=== PATIENT | female | born 1945 | race Caucasian/White ===

== ENCOUNTER → 2017-03-01 | Outpatient (CLI) | payer OTHER ==
[~2017-03-01] VITALS: Ht 154.9 cm; Wt 68.0 kg
[~2017-03-01] MED LIST: ASPIR 8181 MG PO; CENTRUM SILVER1 EAC4 PO; FISH OIL 1,001000 M2 PO; HYDROCHLOROTH12.5 M1 PO; LIPITOR 20 MG T20 M1 PO; METOPROLOL SUCC25 M1 PO; NORVASC5 MG PO; PRINIVIL20 MG PO
--- NOTE | ~2017-03-01 | P ---
[facility] [place] [address] PROCEDURE REPORT Name: JOYCEVIVIENNE Room #: REG [facility]#: [id number] Admission: 03/01/17 Attend Phys: Robinson Alberto MD Discharge: Date of : 47 Report #: [id number] THIS REPORT FOR: //name// CC: Montserrat Alberto BRIEF HISTORY: The patient is a 71-year-old woman for average risk screening colonoscopy. PREOPERATIVE DIAGNOSIS: Average risk screening colonoscopy. POSTOPERATIVE DIAGNOSES: 1. Multiple colon polyps. 2. Mild sigmoid diverticulosis coli. MEDICATIONS: Deep sedation with propofol per anesthesia. SPECIMENS: 1. Polyp at 20 cm. 2. Polyp at 60 cm. 3. Polyp at 30 cm. 4. Rectal polyp. ESTIMATED BLOOD LOSS: 3 mL. PROCEDURE: Colonoscopy to cecum and terminal ileum with snare polypectomy and biopsy. FINDINGS: Prior to propofol sedation, procedure of colonoscopy discussed with the patient as well as potential risks, benefits, and complications. She indicates she understands and desires to proceed. With the patient in left lateral decubitus position, digital examination was completed, which revealed no abnormalities. Subsequently, the C3DNA video colonoscope was introduced into the rectum and advanced under direct vision to the cecum. Done with minimal difficulty. The cecum was identified by the ileocecal valve and the appendiceal orifice. I was able to visualize the distal segment of terminal ileum, which was inspected and noted to be unremarkable. At that point, the scope was slowly withdrawn and careful circumferential views obtained including retroflexing the scope in the ascending colon. Upon slow withdrawal of the scope, the prep was found to be excellent. The mucosa was within normal limits, normal vascular pattern, and normal light reflex. As the scope was withdrawn, a diminutive polyp was seen at 60 cm and removed by biopsy. Scope was further withdrawn and a flat 5 mm polyp was seen and removed by cold snare polypectomy and recovered. At 20 cm, a sessile 6 mm polyp was seen and removed by cold snare polypectomy and recovered. A few scattered sigmoid [facility] [address] [place] [address] PROCEDURE REPORT Name: VIVIENNE COOK Room #: REG [facility].#: [id number] Admission: 03/01/17 Attend Phys: Robinson Alberto MD Discharge: Date of : 47 Report #: [id number] diverticula were seen. There was no endoscopic evidence of diverticulitis. Scope was withdrawn in the rectum and in the rectum, a diminutive rectal polyp was seen and removed by biopsy forceps. Scope withdrawn in the distal rectum. Upon retroflexion, no abnormalities were seen. Scope was withdrawn. The patient tolerated the procedure well. CONDITION OF THE PATIENT UPON DISCHARGE: Following procedure, the patient drowsy, aroused, conversant and will be discharged home when fully ambulatory. INSTRUCTIONS TO THE PATIENT AND FAMILY AT THE TIME OF DISCHARGE: We will follow up on the path report. If 3 or more of these polyps are adenomatous, she should return in 3 years; if one or two adenomas, then she should return in 5 years; if none are adenomatous, she should return in 10 years. She will return to care of Dr. Montserrat White and she will return to see me as needed. Last colonoscopy was more than 10 years ago. Withdrawal time from the cecum was 11 minutes and 19 seconds. <ELECTRONICALLY SIGNED> By: Roibnson Alberto MD 03/01/17 1200 1056 1127 Robinson Alberto MD /nt
--- NOTE | ~2017-03-01 | S ---
[facility] [place] [address] SURGICAL PATH RPT PROCEDURE Name: TIA COOK Room #: REG [facility].#: [id number] Admission: 03/01/17 Date of : 47 Discharge: Report #: [id number] Path Case #: [id number] PATHOLOGY REPORT COLLECTION DATE: 03/01/2017 RECEIVED DATE: 03/01/2017 SUBMITTING PHYS: Dr. Robinson Alberto OTHER PHYS: Dr. Montserrat White SPECIMEN(S) RECEIVED: A.Polyp at 20cm B.Polyp at 60cm C.Polyp at 30cm D.Polyp at rectum * * * * * * * * * * * * FINAL DIAGNOSIS: A. Colon, 20 cm, biopsy: - Tubular adenoma. - Negative for high grade dysplasia. B. Colon, 60 cm, biopsy: - Colonic mucosa with submucosal adipose tissue, see comment. C. Colon, 30 cm, biopsy: - Tubular adenoma. - Negative for high grade dysplasia. D. Rectum, biopsy: - Hyperplastic polyp. COMMENT: The findings present in part B, Colon 60 cm, could either represent a lipoma, or fatty infiltration of the colon. Clinical correlation is recommended. PATHOLOGIST: Odell Severino M.D. REPORT ELECTRONICALLY SIGNED BY: Odell Severino M.D. DATE/TIME: 03/02/2017 12:43 * * * * * * * * * * * * GROSS PATHOLOGY: A. Received in formalin labeled "Tia Cook, polyp at 20 cm," is a segment of ferrer soft tissue measuring 0.8 cm in maximum dimension. The specimen is submitted entirely in cassette A1. B. Received in formalin labeled "Tia Cook, polyp at 60 cm," is a segment of ferrer soft tissue measuring 0.3 cm in maximum dimension. The specimen is submitted entirely in cassette B1. C. Received in formalin labeled "Tia Cook, polyp at 30 cm," is a [facility] [employer] [facility] [address] [place] [address] SURGICAL PATH RPT PROCEDURE Name: TIA COOK Room #: [facility]#: [id number] Admission: 03/01/17 Date of : 47 Discharge: Report #: [id number] Path Case #: [id number] segment of ferrer soft tissue measuring 0.5 cm in maximum dimension. The specimen is submitted entirely in cassette C1. D. Received in formalin labeled "Tia Cook, polyp in rectum," is a segment of ferrer soft tissue measuring 0.4 cm in maximum dimension. The specimen is submitted entirely in cassette D1. (TSD; 03/01/2017) CLINICAL HISTORY: Pre-OP DX: Colonoscopy screening Post-OP DX: Colon polyps, diverticulosis INITIAL CPT CODE(S): A; 23584 B; 08209 C; 27108 D; 35604 Professional services performed by [facility] at [address] , [place] [address] Technical services performed by [facility] at [address] [place] [address]., [address] [address]. [facility] [address] [place] [address] PHONE: [phone] DIRECTOR: Jordan Oviedo M.D. * * * END OF REPORT * * *
== END | disposition home or self-care (01) ==
LOC: GI 07:11
DX: Z12.11 Encounter for screening for malignant neoplasm of colon (principal); D12.5 Benign neoplasm of sigmoid colon; D17.79 Benign lipomatous neoplasm of other sites; K62.1 Rectal polyp; I10 Essential (primary) hypertension; E78.5 Hyperlipidemia, unspecified; Z95.5 Presence of coronary angioplasty implant and graft; Z87.891 Personal history of nicotine dependence; Z98.890 Other specified postprocedural states; Z88.2 Allergy status to sulfonamides; Z79.82 Long term (current) use of aspirin; Z79.899 Other long term (current) drug therapy
CPT/HCPCS: 62110; 62900

== ENCOUNTER 2018-10-31 08:36 | Emergency (ER) | payer OTHER ==
[~2018-10-31] VITALS: Ht 154.9 cm; Wt 77.1 kg
[2018-10-31 09:39] LABS: ABSOLUTE NEUTROPHILS 4.2 thou/uL (1.4-8.2); BASOPHILS 0.8 % (0.0-2.0); EOSINOPHILS 2.3 % (0.0-3.0); HEMATOCRIT 44.8 % (37.0-47.0); HEMOGLOBIN 15.6 gm/dL (12.0-15.0); LYMPHOCYTES 28.1 % (24.0-44.0); MCH 30.1 pg (26.0-34.0); MCHC 34.8 g/dL (28.0-37.0); MCV 86.6 fL (80.0-100.0); MONOCYTES 6.2 % (1.0-8.0); PLATELET COUNT 242 thou/uL (150-400); POLYS 62.6 % (36.0-66.0); RBC 5.18 mil/uL (4.20-5.00); RDW 13.4 % (10.5-14.5); WBC 6.7 thou/uL (4.0-11.0)
[2018-10-31 09:43] LABS: ANION GAP 8 mmol/L (7-16); BUN 17 mg/dL (7-18); CALCIUM 9.8 mg/dL (8.5-10.1); CHLORIDE 104 mmol/L (98-107); CO2 30 mmol/L (21-32); CREATININE 0.8 mg/dL (0.6-1.0); GLUCOSE 106 mg/dL (74-106); POTASSIUM 3.7 mmol/L (3.5-5.1); SODIUM 142 mmol/L (136-145)
[2018-10-31 09:51] LABS: TROPONIN-I <0.06 ng/mL (<0.06)
[2018-10-31 10:14] LABS: URINE BILIRUBIN NEGATIVE (Negative); URINE BLOOD NEGATIVE (Negative); URINE CLARITY CLEAR; URINE COLOR YELLOW; URINE GLUCOSE-RANDOM* NEGATIVE (Negative); URINE KETONES NEGATIVE (Negative); URINE LEUKOCYTES-REFLEX TRACE (Negative); URINE NITRITE-REFLEX NEGATIVE (Negative); URINE PROTEIN (DIPSTICK) NEGATIVE (Negative); URINE UROBILINOGEN 0.2 E.U./dl (0.2-1.0)
[2018-10-31 10:56] VITALS: BP 131/54
--- NOTE | 2018-11-01 15:51 | EKG ---
[place] [address] [facility] [place] [address] ELECTROCARDIOGRAM REPORT Name: VIVIENNE COOK Gerald Room #: DEP [facility]#: [id number] ������������������ Admission: 10/31/18 ������������������ Attend Phys: Discharge: 10/31/18 ������������������ Date of : 47 Report #: [id number] ����������������������������������������������������������������� [id number] THIS REPORT FOR: //name// 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: : 1945 Requested By: Gareth Art Order Number: [id number] MD: Marcelo Russell Measurements Intervals [place] Rate: 62 P: 25 AR: 201 QRS: -43 QRSD: 110 T: 4 QT: 433 QTc: 440 Interpretive Statements Sinus rhythm Left anterior fascicular block Borderline T abnormalities, inferior leads Poor R wave progression Compared to ECG 04/28/2009 07:18:01 Left anterior fascicular block now present Ventricular premature complex(es) no longer present Electronically Signed On 11-01-2018 15:51:33 CDT by Marcelo Russell [email or web address] ��������������������������������������������� <ELECTRONICALLY SIGNED> ���������������������������������������� By: Marcelo Russell MD, [facility] ��������������������������������������������� 11/01/18 1551 0950 0950 Marcelo Russell MD, [facility] /EPI
== END 2018-10-31 10:56 | disposition home or self-care (01) ==
LOC: ER 08:36
PROVIDERS: Emergency Medicine
DX: R42 Dizziness and giddiness (principal); I10 Essential (primary) hypertension; E78.5 Hyperlipidemia, unspecified; Z87.891 Personal history of nicotine dependence; Z88.2 Allergy status to sulfonamides; Z95.5 Presence of coronary angioplasty implant and graft

== ENCOUNTER → 2019-07-03 | Outpatient (CLI) | payer OTHER | LOC: SJCVC 10:45 | DX: R94.31 Abnormal electrocardiogram [ECG] [EKG] (principal); I25.10 Atherosclerotic heart disease of native coronary artery without angina pectoris; I51.81 Takotsubo syndrome; I77.89 Other specified disorders of arteries and arterioles; I12.9 Hypertensive chronic kidney disease with stage 1 through stage 4 chronic kidney disease, or unspecified chronic kidney disease; N18.9 Chronic kidney disease, unspecified; E78.00 Pure hypercholesterolemia, unspecified; Z79.899 Other long term (current) drug therapy; Z87.891 Personal history of nicotine dependence ==

== ENCOUNTER 2020-03-21 08:57 | Emergency (ER) | payer OTHER ==
[~2020-03-21] VITALS: Ht 154.9 cm; Wt 68.0 kg
[2020-03-21 10:56] LABS: ABSOLUTE NEUTROPHILS 5.4 thou/uL (1.4-8.2); BASOPHILS 0.7 % (0.0-2.0); EOSINOPHILS 1.5 % (0.0-3.0); HEMATOCRIT 46.5 % (37.0-47.0); HEMOGLOBIN 16.1 gm/dL (12.0-15.0); LYMPHOCYTES 22.8 % (24.0-44.0); MCH 30.2 pg (26.0-34.0); MCHC 34.6 g/dL (28.0-37.0); MCV 87.4 fL (80.0-100.0); MONOCYTES 5.8 % (1.0-8.0); PLATELET COUNT 232 thou/uL (150-400); POLYS 69.2 % (36.0-66.0); RBC 5.32 mil/uL (4.20-5.00); WBC 7.8 thou/uL (4.0-11.0)
[2020-03-21 11:02] LABS: ANION GAP 9 mmol/L (7-16); BUN 23 mg/dL (7-18); CALCIUM 9.9 mg/dL (8.5-10.1); CHLORIDE 102 mmol/L (98-107); CO2 31 mmol/L (21-32); CREATININE 0.9 mg/dL (0.6-1.0); GLUCOSE 109 mg/dL (74-106); POTASSIUM 3.2 mmol/L (3.5-5.1); SODIUM 142 mmol/L (136-145)
[2020-03-21 11:11] LABS: TROPONIN-I <0.06 ng/mL (<0.06)
--- NOTE | 2020-03-21 11:20 | EKG ---
[facility] [place] [address] ELECTROCARDIOGRAM REPORT Name: JOYCEVIVIENNE A Room #: REG [facility]#: [id number] Admission: 03/21/20 Attend Phys: Discharge: Date of : 47 Report #: [id number] THIS REPORT FOR: cc: Montserrat White MD, Cora A. 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: Darrell LEONE : 1945 Requested By: Odell Nash Order Number: [id number] : Dnany Delgado Measurements Intervals [place] Rate: 69 P: 32 [place]: 193 QRS: -46 QRSD: 107 T: 35 QT: 405 QTc: 434 Interpretive Statements Sinus rhythm Inferior infarct, old Anterior infarct, old Compared to ECG 10/31/2018 09:50:39 Myocardial infarct finding now present Left anterior fascicular block no longer present T-wave abnormality no longer present Poor R-wave progression no longer present Electronically Signed On 03-21-2020 11:20:03 CDT by Danny Delgado [email or web address] <ELECTRONICALLY SIGNED> By: Danny Delgado MD 03/21/20 1120 1 1 Danny Delgado MD /EPI
[2020-03-21 11:52] VITALS: BP 181/85
== END 2020-03-21 11:52 | disposition home or self-care (01) ==
LOC: ER 08:57
PROVIDERS: Emergency Medicine
DX: R07.89 Other chest pain (principal); I10 Essential (primary) hypertension; E78.5 Hyperlipidemia, unspecified; Z79.82 Long term (current) use of aspirin; Z79.899 Other long term (current) drug therapy; Z88.2 Allergy status to sulfonamides; Z87.891 Personal history of nicotine dependence

== ENCOUNTER → 2020-07-02 | Outpatient (CLI) | payer MEDICARE | LOC: SJCVC 14:17 | PROVIDERS: ATTEND Internal Medicine Cardiovascular Disease | DX: R94.31 Abnormal electrocardiogram [ECG] [EKG] (principal); I77.811 Abdominal aortic ectasia; I10 Essential (primary) hypertension; E78.00 Pure hypercholesterolemia, unspecified; I25.10 Atherosclerotic heart disease of native coronary artery without angina pectoris; I51.81 Takotsubo syndrome; R06.00 Dyspnea, unspecified; I25.5 Ischemic cardiomyopathy; M19.90 Unspecified osteoarthritis, unspecified site; Z86.16 Personal history of COVID-19; Z79.82 Long term (current) use of aspirin; Z79.899 Other long term (current) drug therapy; Z87.891 Personal history of nicotine dependence; Z72.89 Other problems related to lifestyle; Z88.2 Allergy status to sulfonamides ==

== ENCOUNTER → 2020-09-09 | Outpatient (CLI) | payer OTHER | LOC: SJCVC 08:33 | PROVIDERS: ATTEND Internal Medicine Cardiovascular Disease | DX: E78.00 Pure hypercholesterolemia, unspecified (principal); I25.10 Atherosclerotic heart disease of native coronary artery without angina pectoris; I10 Essential (primary) hypertension; Z79.82 Long term (current) use of aspirin; Z79.899 Other long term (current) drug therapy; Z82.49 Family history of ischemic heart disease and other diseases of the circulatory system ==

== ENCOUNTER 2020-10-08 09:47 | Emergency (ER) | payer OTHER ==
[~2020-10-08] VITALS: Ht 152.4 cm; Wt 68.0 kg
[2020-10-08] MEDS ORDERED: CRESTOR20 MG PO (10:19)
[2020-10-08 11:26] LABS: ABSOLUTE NEUTROPHILS 4.7 thou/uL (1.4-8.2); BASOPHILS 0.7 % (0.0-2.0); EOSINOPHILS 1.6 % (0.0-3.0); HEMATOCRIT 41.9 % (37.0-47.0); HEMOGLOBIN 14.5 gm/dL (12.0-15.0); LYMPHOCYTES 25.8 % (24.0-44.0); MCH 29.8 pg (26.0-34.0); MCHC 34.7 g/dL (28.0-37.0); MONOCYTES 7.7 % (1.0-8.0); PLATELET COUNT 240 thou/uL (150-400); POLYS 64.2 % (36.0-66.0); RBC 4.87 mil/uL (4.20-5.00); RDW 13.7 % (10.5-14.5); WBC 7.4 thou/uL (4.0-11.0)
[2020-10-08 11:32] LABS: ANION GAP 11 mmol/L (7-16); BUN 22 mg/dL (7-18); CALCIUM 9.7 mg/dL (8.5-10.1); CHLORIDE 103 mmol/L (98-107); CO2 29 mmol/L (21-32); CREATININE 0.9 mg/dL (0.6-1.0); GLUCOSE 103 mg/dL (74-106); SODIUM 143 mmol/L (136-145)
[2020-10-08 11:33] LABS: APTT 24.2 Seconds (24.5-32.8); D-DIMER 0.46 ug/mLFEU (0.19-0.50); INR 0.95; POTASSIUM 4.1 mmol/L (3.5-5.1); PROTIME 10.4 Seconds (10.5-12.1)
[2020-10-08 11:42] LABS: ALBUMIN 3.8 g/dL (3.4-5.0); SGOT 27 U/L (15-37); SGPT 26 U/L (14-59); TOTAL BILIRUBIN 1.8 mg/dL (0.2-1.0); TOTAL PROTEIN 7.4 g/dL (6.4-8.2); TROPONIN-I <0.06 ng/mL (<0.06)
[2020-10-08 12:37] VITALS: BP 142/77
--- NOTE | 2020-10-08 15:24 | EKG ---
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 : 1945 Requested By: Rogelio Reynoso Order Number: [id number] MD: Danny Delgado Measurements Intervals [place] Rate: 69 P: 39 [place]: 188 QRS: -40 QRSD: 111 T: 32 QT: 394 QTc: 422 Interpretive Statements Sinus rhythm Left atrial enlargement Incomplete left bundle branch block Left ventricular hypertrophy Anterior Q waves, possibly due to LVH Compared to ECG 03/21/2020 09:12:48 Electronically Signed On 10-08-2020 15:24:26 CDT by Danny Delgado [email or web address] <ELECTRONICALLY SIGNED> By: Danny Delgado MD 10/08/20 1524 0957 0957 Danny Delgado MD /NAI
== END 2020-10-08 12:37 | disposition home or self-care (01) ==
LOC: ER 09:47
PROVIDERS: Emergency Medicine
DX: M25.512 Pain in left shoulder (principal); I10 Essential (primary) hypertension; E78.5 Hyperlipidemia, unspecified; I25.2 Old myocardial infarction; Z95.5 Presence of coronary angioplasty implant and graft; Z79.899 Other long term (current) drug therapy; Z88.2 Allergy status to sulfonamides; Z87.891 Personal history of nicotine dependence

== ENCOUNTER → 2020-10-12 | Outpatient (CLI) | payer OTHER ==
[~2020-10-12] MED LIST changes: +CRESTOR20 MG PO
== END ==
LOC: SJCVC 09:02 → SJCVCIMAG 14:55
PROVIDERS: ATTEND Internal Medicine Cardiovascular Disease
DX: I44.7 Left bundle-branch block, unspecified (principal); I51.81 Takotsubo syndrome; I10 Essential (primary) hypertension; E78.00 Pure hypercholesterolemia, unspecified; I25.10 Atherosclerotic heart disease of native coronary artery without angina pectoris; R53.83 Other fatigue; R06.00 Dyspnea, unspecified; Z79.82 Long term (current) use of aspirin; Z79.899 Other long term (current) drug therapy; Z86.16 Personal history of COVID-19; Z87.891 Personal history of nicotine dependence; Z72.89 Other problems related to lifestyle; Z88.2 Allergy status to sulfonamides

== ENCOUNTER → 2021-07-12 | Outpatient (CLI) | payer BC | LOC: SJCVC 13:24 | PROVIDERS: ATTEND Internal Medicine Cardiovascular Disease | DX: I25.10 Atherosclerotic heart disease of native coronary artery without angina pectoris (principal); I10 Essential (primary) hypertension; E78.00 Pure hypercholesterolemia, unspecified; I51.81 Takotsubo syndrome; I77.811 Abdominal aortic ectasia; I42.9 Cardiomyopathy, unspecified; M85.80 Other specified disorders of bone density and structure, unspecified site; Z98.890 Other specified postprocedural states; Z88.5 Allergy status to narcotic agent; Z79.82 Long term (current) use of aspirin; Z79.899 Other long term (current) drug therapy; Z87.891 Personal history of nicotine dependence ==